=== PATIENT | female | born 2000 | race Asian ===

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

== ENCOUNTER 2022-07-03 08:00 | Outpatient (CLI) | payer OTHER | END 2022-07-03 23:59 | disposition home or self-care (01) | LOC: LAB.N 08:00 | PROVIDERS: ATTEND Family Medicine | DX: R30.0 Dysuria (principal) | CPT/HCPCS: 87086; 87181 ==